=== PATIENT | female | born 1990 | race Caucasian/White ===

== ENCOUNTER 2024-06-15 00:47 | Day surgery (SDC) | payer OTHER, SELFPAY ==
--- NOTE | 2024-06-06 09:52 | PC.NURSE ---
Report to the Outpatient Waiting Room, entrance under the green pavilion located off [facility], at time _0600_ on date _[phone]_. Planned Procedure Time: _0730_.? Time changes happen often and if your time is changed the preop area will call you the afternoon before. - You and your visitor will be asked to self-screen and do not enter if you have any COVID symptoms. Please call surgeon if you need to reschedule. - A mask is optional within the hospital at this time. Patients may have clear liquids (water, carbonated beverages, clear teas, apple juice) until 3 hours prior to surgery with a maximum of 20 ounces. - No food from midnight until time of surgery and no smoking, or chewing tobacco (or any form of nicotine). No chewing gum, candy or mints. Take only the following medications with a SIP of water on the morning of surgery: __None___ DO NOT STOP ANY OF YOUR OTHER PRESCRIPTION MEDICATIONS PRIOR TO SURGERY EXCEPT THE FOLLOWING Hold all vitamins and supplements for 3 days per anesthesiologist. Medications to discontinue per physician Date to take last dose Please no make-up, nail dominican, hairspray, perfume, deodorant, or body powder the day of surgery.? No jewelry (including any body piercings) or valuables the day of surgery, leave them at home.? Please take a shower or bath the night before, or the morning of, surgery with an antibacterial soap.? Wear comfortable, loose fitting clothing. - Jewelry must be removed prior to entering the operating room.? Rings and piercings that are not removed may be cut off. - The hospital will not accept responsibility for valuables.? - Please leave all valuables, including medications, at home the day of surgery. If you are going home after surgery, a licensed dray driver must drive you home.? - NO public transportation without another adult if you receive anesthesia. - We recommend that an adult stay with you for 24 hours following discharge. - We also recommend that you do not drive, make important decision, drink alcoholic beverages, or take any drugs that were not prescribed by your health care provider for at least 24 hours after your discharge time. Follow any additional instructions given to you from your surgeon. Telephone instructions given to _Ana___and asked if any additional questions and then verbalized understanding. Patient advised to call surgeon office or pre surgery nurse liaison [phone] if any additional questions.
[2024-06-15] VITALS (8 sets, daily range): BP systolic 113–123; BP diastolic 62–78; PULSE 73–97; RESP 12–18; TEMP 36.4–36.7; O2SAT 98–100; BMI 20.9
--- OUTSIDE RECORDS SUMMARY | 2024-06-15 00:50 | XMS_ITS | Encounter Summary ---
Author Organization [facility] Address [address] [place] [address] Phone Care Team Providers Care Boat Tender Name Role Phone Perri Lang MD Primary Care Provider Carson jade Encounter Details Date Type Department Care Team (Late st Contact Info) Description 08/06/2021 Orders Only LAB [facility] [address] [place], [place] [address] Cara Lagos MD [address] [place], [place] [address] Flu-like symptoms; Encounter for screening for COVID-19 Social History Tobacco Use Types Packs/Day Years Used Date Smoking Tobacco: Never Smokeless Tobacco: Never Comments No Sex and Gender Information Value Date Recorded Sex Assigned at Not on file Legal Sex Female 12:06 PM CDT Gender Identity Not on file Sexual Orientation Not on file documented as of this encounter Plan of Treatment Not on file documented as of this encounter Procedures Procedure Name Priority Date/Time Associated Diagnosis Comments COVID-19 VIRUS PCR (2019 NOVEL CORONAVIRUS) Routine 08/06/2021 2:54 PM CDT Flu-like symptoms Encounter for screening for COVID-19 documented in this encounter Results * (ABNORMAL) COVID-19 VIRUS PCR (2019 NOVEL CORONAVIRUS) (08/06/2021 2:54 PM CDT) COVID-19 RESULT POSITIVE( A) [facility] Comment: Test Performed by Multiplex machine hose cutter-PCR. The [place] FDA has made this test available under an emergency access mechanism called an Emergency Use Authorization (EUA). The EUA is supported by the [place] of Health and Human Service's (HHS's) declaration that circumstances exist to justify the emergency use of in vitro diagnostics (IVDs) for the detection and/or diagnosis of the virus that causes COVID-19. An IVD made available under an EUA has not undergone the same type of review as an FDA-approved or cleared IVD. FDA may issue an EUA when certain criteria are met, which includes that there are no adequate, approved, available alternatives, and based on the totality of scientific evidence available, it is reasonable to believe that this IVD may be effective in the detection of the virus that causes COVID-19. The EUA for this test is in effect for the duration of the COVID-19 declaration justifying emergency use of IVDs, unless terminated or revoked (after which the test may no longer be used). COVID-19 SOURCE Nasal Swab [facility] No [facility] FIRST TEST NO [facility] EMPLOYED IN HEALTHCARE NO [facility] SYMPTOMATIC DEFINED BY CDC NO [facility] HOSPITALIZED NO [facility] ICU NO [facility] IS NO [facility] Comment:[facility], [address] [place] [id number] SWAB OF INTERNAL NOSE / Unknown 08/06/2021 2:54 PM CDT 08/06/2021 2:54 PM CDT Narrative [facility] - 08/06/2021 2:55 PM CDT CALL!RDOC us Cara Lagos MD HEM/CHEM/[id number] OD Final Result [facility] [address] [place] [id number], documented in this encounter Visit Diagnoses Diagnosis Flu-like symptoms Influenza with other respiratory manifestations Encounter for screening for COVID-19 documented in this encounter Additional Health Concerns Infection Onset Date Last Indicated Resolved Time COVID-19 08/06/2021 08/06/2021 08/27/2021 10:0 3 PM CDT documented as of this encounter Care Teams Boat Tender Relationship Specialty Start Date End Date Perri Lang MD PCP - General Family Medicine 10/26/22 documented as of this encounter
--- OUTSIDE RECORDS SUMMARY | 2024-06-15 00:50 | XMS_ITS | Clinical Summary ---
Author Organization [facility] Address [address] [place] [address] Phone Care Team Providers Care Data Analytics Architect Name Role Phone Perri Lang MD Primary Care Provider Unavaila ble Allergies Active Allergy Reactions Criticality Noted Date Comments Amoxicillin Hives High 08/06/2016 Cefaclor Other; see comment 08/06/2016 Unaware of reaction Penicillins Hives High 08/06/2016 Sulfa (Sulfonamide Antibiotics) Other; see comment 08/06/2016 Unaware of reaction Medications No known medications Active Problems No known active problems Immunizations Immunization Administration Dates Next Due Influenza (Flu Quad PF) 12/02/2017,12/13/2016 T-dap (ADACEL) 09/26/2015 T-dap (BOOSTRIX) 04/13/2018 Family History Medical History Relation Name Comments Hypertension Father Dementia Maternal Grandfather Heart Maternal Grandfather Heart Maternal Grandmother Anxiety Disorder Mother Hypertension Mother Ovarian Cancer Paternal Aunt late 60s Cancer Paternal Grandfather pancrea tic brain tumor Paternal Grandmother Breast Cancer Negative Cervical Cancer Negative Colon Cancer Negative Uterine Cancer Negative Relation Name Status Comments Brother Alive Daughter Alive Father Alive Maternal Grandfather Maternal Grandmother Mother Alive Paternal Aunt Alive Paternal Grandfather Paternal Grandmother Sister Alive Son 1 Alive Son 2 Alive Social History Tobacco Use Types Packs/Day Years Used Date Smoking Tobacco: Never Smokeless Tobacco: Never Tobacco Cessation:Counseling Given: Not Answered Alcohol Use Standard Drinks/Week Comments Not Currently 0 (1 standard drink = 0.6 oz pur e alcohol) Comments No Sex and Gender Information Value Date Recorded Sex Assigned at Not on file Legal Sex Female 12:06 PM CDT Gender Identity Not on file Sexual Orientation Not on file Last Filed Vital Signs Vital Sign Reading Time Taken Comments Blood Pressure 104/60 06/02/2023 3:49 PM CDT Pulse 81 06/02/2023 3:49 PM CDT Temperature 36.5 C (97.7 F) 06/02/2023 3:49 PM CDT Respiratory Rate 16 05/02/2023 11:14 AM CDT Oxygen Saturation 100% 06/02/2023 3:49 PM CDT Inhaled Oxygen Concentration - - Weight 46.9 kg (103 lb 6.3 oz) 06/02/2023 3:49 P M CDT Height 152.4 cm (5') 10/26/2022 1:53 PM CDT Body Mass Index 20.19 10/26/2022 1:53 PM CDT Plan of Treatment Health Maintenance Due Date Last Done Comments Pap Smear 09/09/2023 09/08/2020 COVID-19 Vaccine (4 - 2023-2 5 season) 2023 01/10/2021, 05/22/2020, 04/24/2020 Depression Screening 10/27/2023 10/26/2022, 03/21/2021 Influenza Vaccine (Season Ended) 2024 03/21/2021 (Declined), 12/02/2017, 12/13/2016 Cervical Cancer Screening 09/08/2025 HPV/Co-Testing 09/08/2025 09/08/2020 DTaP/Tdap/Td Vaccines (3 - T d or Tdap) 04/13/2028 04/13/2018, 09/26/2015 Hepatitis B Vaccines (1 of 3 - 19+ 3-dose series) 10/26/2049 Postponed from 05/2008 (Not Currently Indicated) MMR Vaccines (1 of 1 - Standard series) 10/26/2049 Postponed from 10/12 (Not Currently Indicated) Varicella Vaccines (1 of 2 - 13+ 2-dose series) 10/26/2049 Postponed from 10/12 (Not Currently Indicated) HIB Vaccines Aged Out No longer eligi ble based on patient's age to complete this topic HPV Vaccines Aged Out No longer eligi ble based on patient's age to complete this topic Hepatitis A Vaccines Aged Out No long er eligible based on patient's age to complete this topic IPV Vaccines Aged Out No longer eligi ble based on patient's age to complete this topic Meningococcal B Vaccine Aged Out No l onger eligible based on patient's age to complete this topic Meningococcal Vaccine (ACWY) Aged Out No longer eligible based on patient's age to complete this topic Pneumococcal Vaccines Aged Out No melany martin eligible based on patient's age to complete this topic Rotavirus Vaccines Aged Out No longer eligible based on patient's age to complete this topic Insurance [employer] Care Teams Data Analytics Architect Relationship Specialty Start Date End Date Perri Lang MD PCP - General Family Medicine 10/26/22
--- OUTSIDE RECORDS SUMMARY | 2024-06-15 00:50 | XMS_ITS | Clinical Summary ---
Author Organization [facility] Address [address] [place] [address] Phone Care Team Providers Care Community Service Aide Name Role Phone Negro Odom MD Primary Care Provider [phone] Allergies Active Allergy Reactions Criticality Noted Date Comments Amoxicillin Rash 09/23/2015 Penicillins Rash 09/23/2015 Sulfa Antibiotics Rash 09/23/2015 Medications Vit-Fe Fumarate-FA ( VITAMIN PO) Take by mouth. Active ibuprofen (MOTRIN) 800 MG Tablet Take 1 Tab by mouth every 8 hours. 50 Tab 05/18/2018 Active Family History Medical History Relation Name Comments Heart Attack Maternal Grandmother Relation Name Status Comments Maternal Grandmother Social History Tobacco Use Types Packs/Day Years Used Date Smoking Tobacco: Never Smokeless Tobacco: Never Alcohol Use Standard Drinks/Week Comments No 0 (1 standard drink = 0.6 oz pur e alcohol) PHQ-2 Answer Date Recorded PHQ-2 Score 0 2018 Douglas Depression Scale Answer Date Recorded RETIRED Douglas Depression Score 0 05/17/2018 Last EPDS Self Harm Result Not on file 05/17 Sexually Active Control Partners Comments Yes Male Comments No Sex and Gender Information Value Date Recorded Sex Assigned at Not on file Legal Sex Female 9:25 PM CDT Gender Identity Not on file Sexual Orientation Not on file Last Filed Vital Signs Vital Sign Reading Time Taken Comments Blood Pressure 113/76 05/18/2018 6:30 PM CDT Pulse 78 05/18/2018 6:30 PM CDT Temperature 36.6 C (97.9 F) 05/18/2018 6:30 PM CDT Respiratory Rate 16 05/18/2018 6:30 PM CDT Oxygen Saturation 97% 05/18/2018 6:30 PM CDT Inhaled Oxygen Concentration - - Weight 60.8 kg (134 lb) 05/17/2018 2:22 AM CDT Height 152.4 cm (5') 05/17/2018 2:22 AM CDT Body Mass Index 26.17 05/17/2018 2:22 AM CDT Plan of Treatment Not on file Insurance [facility] Advance Directives * Full Code (Latest Code Status on File) Date Activated Date Inactivated Comments 05/17/2018 2:13 AM 05/19/2018 11:20 PM CPR-Full Naman atment: FULL ARREST: Attempt Resuscitation/CPR wit intubation and mechanical ventilation. PRE-ARREST: Use entire range of life support measures to stabilize the patient. * Full Code Date Activated Date Inactivated Comments 09/23/2015 9:35 PM 09/24/2015 3:07 AM CPR-Full [place]aman atment: FULL ARREST: Attempt Resuscitation/CPR wit intubation and mechanical ventilation. PRE-ARREST: Use entire range of life support measures to stabilize the patient. Care Teams Community Service Aide Relationship Specialty Start Date End Date Negro Odom MD [address] [place] [address] [place] [address] PCP - General Family Medicine 09/23/15
--- OUTSIDE RECORDS SUMMARY | 2024-06-15 00:50 | XMS_ITS | Clinical Summary ---
Author Organization [facility] Address [address] [place] [id number] Care Team Providers Care Formwork Carpenter Name Role Phone Unavailable Primary Care Provider Unavailabl e Social History Tobacco Use Types Packs/Day Years Used Date Smoking Tobacco: Never Assessed Comments Unknown Sex and Gender Information Value Date Recorded Sex Assigned at Not on file Legal Sex Female 9:52 PM MICROSTRATEGY DEVELOPER Gender Identity Not on file Sexual Orientation Not on file Plan of Treatment Health Maintenance Due Date Last Done Comments Cervical Cancer Screening Pa p Smear (Age 30 to 64) Every 3 Years 1989 Annual Physical 1992 Hepatitis C 10/13/2007 DTaP, Tdap and Td Vaccines ( 1 - Tdap) 2008 Hepatitis B Vaccines (1 of 3 - 19+ 3-dose series) 2008 Cervical Cancer Screening Pa p with HPV Testing (Age 30 to 64) Every 5 Years 10/13/2019 Cervical Cancer Screening with HPV 10/13/2019 COVID-19 Vaccine (2023-2 5 season) 2023 HPV Vaccines Aged Out No longer eligi ble based on patient's age to complete this topic Meningococcal B Vaccine Aged Out No l onger eligible based on patient's age to complete this topic Meningococcal Vaccine Aged Out No melany martin eligible based on patient's age to complete this topic Pneumococcal Vaccine: Pediat rics (0 to 5 Years) and At-Risk Patients (6 to 49 Years) Aged Out No longer eligible b ased on patient's age to complete this topic RSV Immunizations Under 20 Months Aged Out No longer eligible based on patient's age to complete this topic
--- OUTSIDE RECORDS SUMMARY | 2024-06-15 00:50 | XMS_ITS | Data Portability ---
Author Organization [facility], [facility] Address [address] [place] [address] Assessment Encounter Date Assessment Date Assessment LastModified by Organization Details LastModified Time 09/03/2020 09/03/2020 Annual gynecological exam performed. Patient will come back in a year unless there are new symptoms. Not available 09/03/2020 11:41:20 09/08/2021 09/08/2021 Annual gynecological exam performed. Patient will come back in a year unless there are new symptoms. Not available 09/08/2021 11:33:25 09/10/2022 09/10/2022 Annual gynecological exam performed. Patient will come back in a year unless there are new symptoms. [email or web address] Not available 09/10/2022 11:31:28 09/14/2023 09/14/2023 Annual gynecological exam performed. Patient will come back in a year unless there are new symptoms. [email or web address] Not available 09/14/2023 11:58:34 Plan of Treatment Reminders Order Date Submit Date Provider Last Modified By Organization Details Last Modified Time Details Appointments ANNUAL 2024 09:30A M Dr. Underwood Not available Not available Not available Lab pap, IG + reflex HPV 2023 024 CODEY [facility], [address] [place], [address], 09/20/2023 12:35:42 pap, IG + reflex HPV 2020 021 CODEY [facility] (Centralized Electronic Ordering - All Locations), Patient Can Go To The Location Of Their Choice, [address] 09/05/2020 12:35:40 pap, IG + reflex HPV (16+18+ 45) 2018 019 CODEY [facility] (Centralized Electronic Ordering - All Locations), Patient Can Go To The Location Of Their Choice, [address] 06/30/2018 09:36:08 Referral None recorde d. Procedures None recorde d. Surgeries None recorde d. Imaging None recorde d. Medication Orders None recorde d. Patient TargetsNo targets recorded. Patient Instructions Encounter Date Encounter Id Patient Instructions Last Modified By Organization Details Last Modified Time 06/28/2018 [id number] edinburgh depression scale* [email or web address] Not available 06/28/2018 11:43:53 09/14/2023 [id number] RTO-09/2024 for Annual Examination. [email or web address] Not available 09/14/2023 13:16:13 Pap smear done today, Last Pap smear-09/03/2020 -WNL< HR HPV Negative. [email or web address] Not available 09/14/2023 13:16:52 Reason for Referral None Reported. Results Created Date Observation Date Name Description Value Unit Range Abnormal Flag Note LastModifiedBy Organization Detail LastModifiedTime 06/29/19 19 06/28/2018 edinb urgh postn atal depre ssion scale * Total Score 5 Not Available [address], [place], [address], 06/28/2018 10:21:31 06/29/19 19 06/29/2018 pap, IG + refle x HPV (16+1 8+45) age gdln acog testing Not Available [facility] ([facility]) [address] [facility] [address], [place], [address], 06/30/2018 09:36:08 06/29/19 19 06/30/2018 pap, IG + refle x HPV (16+1 8+45) diagnosis: Commen t NEGAT ILIR FOR INTRA EPITH ELIAL LESIO N OR WILLOW CARTER . Not Available [facility] ([facility]) [address] [facility] [address], [place], [address], 06/30/2018 09:36:08 06/29/19 19 06/30/2018 pap, IG + refle x HPV (16+1 8+45) specimen adequacy: Mari monge Satis facto ry for evalu ation . Endoc ervic al and/o r squam ous metap lasti c cells (endo cervi ca compo nent) are prese nt. Not Available [facility] ([facility]) [address] [place], [address], 06/30/2018 09:36:08 06/29/19 19 06/30/2018 pap, IG + refle x HPV (16+1 8+45) clinician provided ICD10: Mari monge Z12.4 Not Available [facility] ([facility]) [address] [place], [address], 06/30/2018 09:36:08 06/29/19 19 06/30/2018 pap, IG + refle x HPV (16+1 8+45) performed by: Mari Burrows ns, Cytot carolann fontenot t (ASCP ) Not Available [facility] ([facility]) [address] [place], [address], 06/30/2018 09:36:08 06/29/19 19 06/30/2018 pap, IG + refle x HPV (16+1 8+45) . . Not Available [facility] ([facility]) [address] [place], [address], 06/30/2018 09:36:08 06/29/19 19 06/30/2018 pap, IG + refle x HPV (16+1 8+45) note: Mari monge The Pap smear is a scree adan test desig arnulfo to aid in the detec tion of gayle ligna nt and malig nant condi tions of the uteri ne cervi x. It is not a diagn ostic proce dure and shoul d not be used as the sole means of detec ting cervi ca cance r. Both false -posi tive and false -nega tive repor ts do occur . Not Available [facility] ([facility]) [address] [facility], [place], [address], 06/30/2018 09:36:08 06/29/1906/30/2018 pap, IG + refle x HPV (16+1 8+45) test methodology: Commen t This liqui d based ThinP rep(R ) pap test was avel arredondo with the use of an image guide arthur white Not Available [facility] ([facility]) [address] [facility], [place], [address], 06/30/2018 09:36:08 06/29/1906/30/2018 pap, IG + refle x HPV (16+1 8+45) . Commen t The HPV DNA refle x crite ellis were not met with this speci men resul t there fore, no HPV testi ng was perfo rmed. Not Available [facility] ([facility]) [address] [facility], [place], [address], 06/30/2018 09:36:08 09/04/1909/04/2020 IGP,A PTIMA HPV,A GE GDLN age gdln acog testing 30-65 Not Available [facility] ([facility]) [address] [place], [address], 09/05/2020 12:35:40 09/04/1909/04/2020 IGP,A PTIMA HPV,A GE GDLN HPV aptima Negati ve negati ve This nucle ic acid ampli ficat ion test detec ts fourt een high- risk HPV types (16,1 8,31, 33,35 ,39,4 5,51, 52,56 ,58,5 9,66, 68) witho ut diffe renti ation . Not Available [facility] ([facility]) [address] [facility], [place], [address], 09/05/2020 12:35:40 09/04/1909/05/2020 IGP,A PTIMA HPV,A GE GDLN diagnosis: Mari GONSALESAT ILIR FOR INTRA EPITH ELIAL MART N OR WILLOW CARTER . Not Available [facility] ([facility]) [address] [place], [address], 09/05/2020 12:35:40 09/04/1909/05/2020 IGP,A PTIMA HPV,A GE GDLN specimen adequacy: Mari monge Satis facto ry for evalu ation . Endoc ervic al and/o r squam ous metap lasti c cells (endo cervi ca compo nent) are prese nt. Not Available [facility] ([facility]) [address] [place], [address], 09/05/2020 12:35:40 09/04/1909/05/2020 IGP,A PTIMA HPV,A GE GDLN clinician provided ICD10: Mari monge Z12.4 Not Available [facility] ([facility]) [address] [place], [address], 09/05/2020 12:35:40 09/04/1909/05/2020 IGP,A PTIMA HPV,A GE GDLN performed by: Mari Dumont , Cytot carolann fontenot t (ASCP ) Not Available [facility] ([facility]) [address] [place], [address], 09/05/2020 12:35:40 09/04/1909/05/2020 IGP,A PTIMA HPV,A GE GDLN . . Not Available [facility] ([facility]) [address] [place], [address], 09/05/2020 12:35:40 09/04/1909/05/2020 IGP,A PTIMA HPV,A GE GDLN note: Mari monge The Pap smear is a scree adan test yao arredondo to aid in the detec tion of gayle ligna nt and malig nant condi tions of the uteri ne cervi x. It is not a diagn ostic proce dure and shoul d not be used as the sole means of detec ting cervi ca cance r. Both false -posi tive and false -nega tive repor ts do occur . Not Available [facility] ([facility]) [address] [place], [address], 09/05/2020 12:35:40 09/04/19 21 09/05/2020 IGP,A PTIMA HPV,A GE GDLN test methodology: Commen t This liqui d based ThinP rep(R ) pap test was avel arredondo with the use of an image guide arthur white Not Available [facility] ([facility]) [address] [facility], [place], [address], 09/05/2020 12:35:40 09/14/19 24 09/14/2023 IGP,A PTIMA HPV,A GE GDLN age gdln acog testing 30-65 Not Available [facility] ([facility]) [address] [place], [address], 09/20/2023 12:35:42 09/14/19 24 09/15/2023 IGP,A PTIMA HPV,A GE GDLN HPV aptima Negati ve negati ve This nucle ic acid ampli ficat ion test detec ts fourt een high- risk HPV types (16,1 8,31, 33,35 ,39,4 5,51, 52,56 ,58,5 9,66, 68) witho ut diffe renti ation . Not Available [facility] ([facility]) [address] [place], [address], 09/20/2023 12:35:42 09/14/19 24 09/20/2023 IGP,A PTIMA HPV,A GE GDLN diagnosis: Commen t NEGAT ILIR FOR INTRA EPITH ELIAL LESIO N OR MALIG RAUL . THIS SPECI MEN WAS RESCR EENED PART OF OUR QUALI TY CONTR OL PROGR AM. Not Available [facility] ([facility]) [address] [facility], [place], [address], 09/20/2023 12:35:42 09/14/19 24 09/20/2023 IGP,A PTIMA HPV,A GE GDLN specimen adequacy: Mari monge Satis facto ry for evalu ation . Endoc ervic al and/o r squam ous metap lasti c cells (endo cervi ca compo nent) are prese nt. Not Available [facility] ([facility]) [address] [facility], [place], [address], 09/20/2023 12:35:42 09/14/19 24 09/20/2023 IGP,A PTIMA HPV,A GE GDLN clinician provided ICD10: Mari monge Z01.4 19 Not Available [facility] ([facility]) [address] [facility], [place], [address], 09/20/2023 12:35:42 09/14/19 24 09/20/2023 IGP,A PTIMA HPV,A GE GDLN performed by: Mari milian, Cytot echno logis t (ASCP ) Not Available [facility] ([facility]) [address] [place], [address], 09/20/2023 12:35:42 09/14/19 24 09/20/2023 IGP,A PTIMA HPV,A GE GDLN QC reviewed by: Mari rivera, Cytot echno logis t (ASCP ) Not Available [facility] ([facility]) [address] [place], [address], 09/20/2023 12:35:42 09/14/19 24 09/20/2023 IGP,A PTIMA HPV,A GE GDLN . . Not Available [facility] ([facility]) [address] [place], [address], 09/20/2023 12:35:42 09/14/19 24 09/20/2023 IGP,A PTIMA HPV,A GE GDLN note: Commen t The Pap smear is a scree adan test desig arnulfo to aid in the detec tion of gayle ligna nt and malig nant condi tions of the uteri ne cervi x. It is not a diagn ostic proce dure and shoul d not be used as the sole means of detec ting cervi ca cance r. Both false -posi tive and false -nega tive repor ts do occur . Not Available [facility] ([facility]) [address] [facility], [place], [address], 09/20/2023 12:35:42 09/14/19 24 09/20/2023 IGP,A PTIMA HPV,A GE GDLN test methodology: Traceeen t This liqui d based ThinP rep(R ) pap test was scree arnulfo with the use of an image guide d systfior m. Not Available [facility] ([facility]) [address] [facility], [place], [address], 09/20/2023 12:35:42 09/14/19 24 09/20/2023 IGP,A PTIMA HPV,A GE GDLN HPV genotype reflex Commen t Crite ellis not met, HPV Genot ype not perfo rmed. Not Available [facility] ([facility]) [address] [facility], [place], [address], 09/20/2023 12:35:42 Result Notes None recorded. Problems Name Problem SNOMED Code Status Onset Date Resolution Date Notes Provider Name and Address Organization Details Recorded Time No current problems or disability [id number] Active Ambar Fu [place], [place] - [place] [facility] 2 11:34:01 [id number] Completed 201706/28/2018 Anette Guerra, JAYNE [address], [place], [address], [facility] [place] 9 10:56:39 Problem Notes None recorded. Procedures Surgical History Date Name Laterality Status Provider Name and Address Organization Details Recorded Time 4 Date of Last Pap Smear completed Gypsy Rey [facility] [place] 09/23/2023 14:38:16 6 Caesarean Section completed Carmelo Anderson [facility] [place] 10/25/2017 16:07:39 Imaging Results None recorded. Procedure Notes None recorded. Medical Equipment None Reported. Allergies Allergen ID Allergen Name Allergen Category Reaction Reaction Severity Criticality Documentation Date Start Date Code Code System Note Provider Name and Address Organization Details Recorded Time 921 Substance with sulfonami de structure and antibacte rial mechanism of action (substanc e) medicatio n Not available Not available Not available 10/25/2017 37227 8003 SNOMED Carmelo Anderson [facility] [place] 8 09:30:46 922 Product containin g penicilli n (product) medicatio n Not available Not available Not available 10/25/2017 14534 8001 SNOMED Carmelo Anderson [facility] [place] 8 09:31:00 923 amoxicill in medicatio n Not available Not available Not available 10/25/2017 723 [facility] [place] 8 09:31:09 Medications Name Sig Start Date Stop Date Status Note LastModified by Organization Details LastModified Time doxycycline hyclate 100 mg capsule TAKE 1 CAPSULE BY MOUTH TWICE A DAY 09/08 completed Not Available Not Available Not Available ibuprofen 800 mg tablet 09/03 completed Not Available Not Available Not Available hydrocortis one acetate 25 mg rectal suppository Insert 1 supposito ry twice a day by rectal route for 7 days. 09/03 completed Not Available Not Available Not Available Macrobid 100 mg capsule Take 1 capsule every 12 hours by oral route for 5 days. 09/03 completed Not Available Not Available Not Available Diclegis 10 mg-10 mg tablet,nicky yed release Take 2 tablets twice a day by oral route for 30 days. 09/03 completed Not Available Not Available Not Available Vitals Date Recorded Body height Body mass index (BMI) Body weight Systolic blood pressure Diastolic blood pressure Provider Name and Address Organization Details Last Updated DateTime 09/03/2020 152.4 cm 21.3 kg/m2 23512.57 g 110 mm[Hg] 62 mm[Hg] [facility] [place] 1 11:48:29 Date Recorded Body height Body mass index (BMI) Body weight Systolic blood pressure Diastolic blood pressure Provider Name and Address Organization Details Last Updated DateTime 09/08/2021 152.4 cm 21.3 kg/m2 73475.57 g 102 mm[Hg] 60 mm[Hg] [facility] [place] 2 11:39:26 Date Recorded Body height Body mass index (BMI) Body weight Systolic blood pressure Diastolic blood pressure Provider Name and Address Organization Details Last Updated DateTime 09/10/2022 152.4 cm 20.7 kg/m2 90511.79 g 121 mm[Hg] 80 mm[Hg] [facility] 3 11:44:26 Date Recorded Body height Body mass index (BMI) Body weight Systolic blood pressure Diastolic blood pressure Provider Name and Address Organization Details Last Updated DateTime 09/14/2023 152.4 cm 20.3 kg/m2 84288.61 g 106 mm[Hg] 70 mm[Hg] Gypsy Rey [facility] 4 12:05:39 Date Recorded Body height Body mass index (BMI) Body weight Systolic blood pressure Diastolic blood pressure Provider Name and Address Organization Details Last Updated DateTime 06/28/2018 152.4 cm 22.5 kg/m2 39872.12 255 g 100 mm[Hg] 68 mm[Hg] Justyn Carranza [facility] 9 10:18:01 Social History Question Answer Notes LastModified by Organizat ion Details LastModified Time Tobacco Smoking Status Never Smoker [facility] 09/03/2020 11:43:54 What Was The Date Of Your Most Recent Tobacco Screening? 09/14/2023 [email or web address] Information not available 09/14/2023 What Is Your Relationship Status? [facility] Information not available 09/14/2023 Do You Use Any Illicit Or Recreational Drugs? No [email or web address] Information not available 09/03/2020 Do You Or Have You Ever Used Any Other Forms Of Tobacco Or Nicotine? No [email or web address] Information not available 09/03/2020 Sex: Female Functional Status None recorded. Mental Status None recorded. Family History Relationship Description Onset Age of this Age Resolved Age Notes LastModified by Organization Details LastModified Time Father Hypertensive disorder [email or web address] Not available 2022 11:45:00 Mother Disorder of thyroid gland [email or web address] Not available 2022 11:45:05 Maternal Grandmother Heart disease [email or web address] Not available 2022 11:45:11 Paternal Grandmother Neoplasm of brain [email or web address] Not available 2022 11:45:26 Paternal Grandfather Malignant tumor of pancreas [email or web address] Not available 2022 11:45:47 Medical History Condition Response Allergies (Food, seasonal, environmental ) N Other N Drug/Latex Allergies/Reactions N Breast Cancer N Blood Transfusion N Dermatologic Disorders N Lung Disease N Defects or Inherited Disease N Breast Problem N Gestational Diabetes N Hematologic disorders N Anesthesia Complications N History of STI N Deep Vein Thrombosis N Polycystic ovary syndrome N Anxiety Disorder N Autoimmune disease N Arthritis N Polyps N Infertility N Acid Reflux (GERD) N History of abnormal pap N Cancer N Varicosities N Stroke N Neurologic/Epilepsy N Endometriosis N High Cholesterol N Fibromyalgia N Headaches N Kidney Disease N Heart Problems N Thyroid Problems N Kidney or Bladder Problems N GI Problems N Acne N Eating Disorder N Anemia N Art (IVF or FET) N Psychiatric Illness N Ovarian Cancer N Diabetes N Pulmonary (TB, Asthma) N Hepatitis/Liver Disease N Eczema N Abuse/Domestic Violence N Asthma N Trauma/Violence N Depression/ depression N Heart Disease N Pre-Eclampsia N Hypertension N Osteoporosis N Thrombophilias N Gynecological History Statement/Question Response Abnormal Pap N Flow Moderate On BCP's at Conception? N STIs/STDs N HPV Vaccine N Duration of Flow (days) 5 Age at Menarche 14 Current Control Method Partner Vas ectomy Age at First Child 25 Frequency of Cycle (Q days) 27 Sexually Active? Y Menses Monthly Y Date of Last Pap Smear 09/14/2023 Sexual Problems? N Desired Control Method N/A LMP Definite Obstetrics History GPAL:G 2 P 1 1 0 3 Type Value Multiple Births 1 Full Term 1 Premature 1 Living 3 Total 2 Past Encounters Encounter ID Performer Location Encounter Start Date Encounter Closed Date Diagnosis/Indication Diagnosis SNOMED-CT Code Diagnosis ICD10 Code Diagnosis Note [id number] Naya Underwood MD Main Office [address] [place] [address] 10/25/2017 15:44:20 10/26/2017 09:41:48 Gestation period, 8 weeks 36793768 Z3A.08 Multigravida 634591613 Z 34.81 [id number] Anette Guerra CNM Main Office [address] [place] [address] 6 11/23/2017 09:54:12 11/24/2017 10:21:08 Multigravida 066795588 O09.629 Gestation period, 12 weeks 23285942 Z3A.12 [id number] Anette Guerra CNM Main Office [address] [place] [address] 6 12/21/2017 10:05:00 12/27/2017 10:41:09 Multigravida 157618787 O09.629 Gestation period, 16 weeks 36071664 Z3A.16 [id number] Anette Guerra CNM Main Office [address] [place] [address] 01/18/2018 09:50:57 01/18/2018 11:08:38 Multigravida 509457020 O09.629 Gestation period, 20 weeks 61331242 Z3A.20 [id number] Naya Underwood MD Main Office [address] [place] [address] 02/17/2018 10:20:26 02/22/2018 11:58:41 Gestation period, 24 weeks 905896324 Z3A.24 Multigravida 769115999 Z 34.82 [id number] Anette Guerra CNM Main Office [address] [place] [address] 03/17/2018 10:04:11 03/18/2018 10:02:47 Multigravida 029565297 O09.629 Gestation period, 28 weeks 83555657 Z3A.28 [id number] Naya Underwood MD Main Office [address] [place] [address] 03/31/2018 11:20:51 03/31/2018 14:56:18 Multigravida 782577351 Z34.82 Gestation period, 30 weeks 74700109 Z3A.30 [id number] Anette Guerra CNM Main Office [address] [place] [address] 04/12/2018 12:03:51 04/12/2018 12:28:05 Multigravida 182997795 O09.629 Gestation period, 32 weeks 9700926 Z3A.32 [id number] Naya Underwood MD Main Office [address] [place] [address] 04/28/2018 11:14:55 04/28/2018 14:15:20 [id number] Anette Guerra CNM Main Office [address] [place] [address] 05/10/2018 10:13:36 05/10/2018 13:00:35 Multigravida 638126437 O09.629 Hemorrhoids 21912060 K64 .9 Gestation period, 36 weeks 95584012 Z3A.36 [id number] Anette Guerra CNM Main Office [address] [place] [address] 06/28/2018 10:10:34 06/28/2018 14:43:14 state 92368741 Z39.2 Screening for malignant neoplasm of cervix 559090743 Z12.4 [id number] Anette Guerra CNM Main Office [address] [place] [address] 09/03/2020 11:33:07 09/04/2020 12:41:42 Screening for malignant neoplasm of cervix 022008457 Z12.4 Gynecologi c examination 84408669 Z01.419 [id number] Anette Guerra CNM Main Office [address] [place] [address] 09/08/2021 11:32:53 09/08/2021 15:07:54 Gynecologic examination 32545567 Z01.419 Pap guidelines discussed, pap not collected. [id number] Anette Guerra CNM Main Office [address] [place] [address] 09/10/2022 11:08:54 09/10/2022 12:15:41 Gynecologic examination 21813677 Z01.419 Pap guidelines discussed, pap not collected. Tenderness of breast 552 87426 N64.4 Discussed normal cyclical breast changes and [place]. [id number] Naya Underwood MD Main Office [address] [place] [address] 09/14/2023 11:53:09 09/14/2023 14:05:57 Gynecologic examination 43576703 Z01.419 Health Concerns Section Related Observation LastModified by Organization Detai ls LastModified Time None Recorded Concern Status LastModified by Organization Details LastModified Time None Recorded Advance Directives Directive None Recorded Payers Encounter Date Sequence Insurance Name Policy Number Policy Daigle Covered Member ID Daigle Member ID Guarantor Name 06/28/2018 1 [employer] ([employer]) [id number] Luis Felipe Mancilla [id number] Ana Mancilla 06/28/2018 1 [place] [id number] Luis Felipe Mancilla [id number] Ana Mancilla 09/03/2020 1 [employer] [id number] Ana Mancilla [id number] Ana Mancilla 09/08/2021 1 [employer] [id number] Ana Mancilla [id number] Ana Mancilla 09/10/2022 1 [employer] [id number] Ana Mancilla [id number] Ana Mancilla 09/14/2023 1 [employer] [id number] Ana Mancilla [id number] Ana Mancilla Notes Date Note Type Note Provider Name and Address Organization Details Recorded Time 06/28/2018 text/html VisitReported bypatient.Associate d Symptoms:no abnormal bleeding; no vaginal discharge; no pelvic pain; laceration well healed; no constipation; no fecal incontinence; no dysuria; no urinary incontinence; no fever; no problems; no mastitis; normal mood 27 year old white female is here for post examination s/p 05/17/18. Doing well, no complaints. . Declines contraception at this time, reports is planning for vasectomy and will use condoms until then. Volant score: [address], [place], [address], [facility] [place] 06/28/2018 12:45:26 09/03/2020 text/html Annual GYNReport ed bypatient.Menstrual cycle:Normal menses Urinary symptoms:No hematuria; No incontinence Vulva:No genital lesion Vagina:Normal vaginal discharge Breast:No breast pain; No breast lump; No nipple discharge Sexual complaints:No sexual complaints; No pain during intercourse; Normal libido Menopausal Symptoms:No menopausal symptoms; Normal vaginal lubrication Psychological symptoms:No depression; No anxiety; No PMDD Preventive measures:Encourage self breast examination 29 year old white female is here for annual examination. Vasectomy for contraception. Last pap 06/28/18 WNL. No changes to medical/surgical history since last examination. Denies complaints today. [address], [place], [address], [facility] 09/04/2020 11:55:26 09/08/2021 text/html Annual GYNReport ed bypatient.Menstrual cycle:Normal menses Urinary symptoms:No hematuria; No incontinence Vulva:No genital lesion Vagina:Normal vaginal discharge Breast:No breast pain; No breast lump; No nipple discharge Sexual complaints:No sexual complaints; No pain during intercourse; Normal libido Menopausal Symptoms:No menopausal symptoms; Normal vaginal lubrication Psychological symptoms:No depression; No anxiety; No PMDD Preventive measures:Encourage self breast examination 30 year old white female is here for annual examination. LMP 08/30/21. Vasectomy for contraception. Last pap 09/03/20 WNL, HPV HR negative. Denies changes to medical/surgical history since last examination. Denies complaints today. Anette Guerra, JAYNE [address], [place], [address], [facility] 09/08/2021 12:22:13 09/10/2022 text/html Annual GYNReport ed bypatient.Menstrual cycle:Normal menses Urinary symptoms:No hematuria; No incontinence Vulva:No genital lesion Vagina:Normal vaginal discharge Breast:No breast pain; No breast lump; No nipple discharge Current Contraception:Partn er had vasectomy Sexual complaints:No sexual complaints; No pain during intercourse; Normal libido Menopausal Symptoms:No menopausal symptoms; Normal vaginal lubrication Psychological symptoms:No depression; No anxiety; No PMDD Preventive measures:Encourage self breast examination 31 year old white female is here for annual examination. LMP 08/28/22. Vasectomy for contraception. Last pap 09/03/20 WNL, HPV HR negative. Denies changes to medical/surgical history since last examination. Fort the past 3 months, patient notes right breast discomfort several days preceding her period. Resolves completely therafter. Does not palpate a mass. Negtive family history. Anette Guerra CNM [address], [place], [address], [facility] 09/10/2022 12:09:54 09/14/2023 text/html 32 Y/o WF 03 ( 1-PT-LTCS for Twins, 1-FT- ), LMP-08/23/2023, is here for Annual examination. Vasectomy for contraception. Last pap 09/03/20 WNL, HPV HR Negative. Denies changes to medical/surgical history since last examination. No other complaints. Naya Underwood MD [address], [place], [address], [facility] 09/14/2023 13:17:08 OBGyn Episode Ob Episode Information Episode Created Date Number of Fetuses Patient Bloodtype Patient rh Status Prepregnancy Weight lbs Domestic Partner Domestic Partner Phone Father Name Developmental Therapist Status 10/26/19 18 1 O Positive Luis Felipe Mancilla [facility] CLOSED Fetus Data First Name Last Name Admitted to NICU Weight (g) Sex Living Outcome Pediatric Complications Fetus ID Race Codes Race Delivery Type Cornejo pieter Gonzales y false 3061.74 6 M Full Term 1894 declin ed Patie nt Decli arnulfo Mina Calculation Initial Mina Date Initial Exam Date Initial Exam Provider Initial Ultrasound Date Last Menstrual Period Date Ultra Sound Weeks Gestation 06/04/2018 10/25/2017 10/25/2017 08/27/2017 8 Eighteen To Twenty Week Mina Update Ultra Sound Date Fundal Height At Umbil Quickening Date Ultra Sound Latest Weeks Gestation Final Mina Confirmed By Final Mina Confirmed Date Final Mina Date Ultra Sound Latest Days Gestation 0 vmorisetty 10/25/2017 019 0 Pre-hui Flowsheet Flowsheet Date 10/25/2017 Gauthier Score Blood Edema Fundus Height Fundus Units Glucose Ketones Leukocytes Nitrite Labor Signs Protein Cervic Dilation Cervic Effacement Cervic Station none neg Type Weight in lbs Pre/Post Dialysis Refused 100.289377129488 BP Diastolic BP Location Tested BP Systolic BP Type 70 R arm 116 sitting Fetus Heart Rate Present A 160's Present Fetus Movement Comments Pt. is here for an initial p renatal visit. Pt. c/o nausea and vomiting. Pt. will have NOB labs done at next visit. Flowsheet Date 11/23/2017 Gauthier Score Blood Edema Fundus Height Fundus Units Glucose Ketones Leukocytes Nitrite Labor Signs Protein Cervic Dilation Cervic Effacement Cervic Station none none Type Weight in lbs Pre/Post Dialysis Refused 107.391217423096 BP Diastolic BP Location Tested BP Systolic BP Type 64 R arm 112 sitting Fetus Heart Rate Present A 155 Present Fetus Movement Comments No complaints, pt. states th at nausea is getting better. Pt. NOB labs, GC/Chlamydia, and urine cx done in office today. Flowsheet Date 12/21/2017 Gauthier Score Blood Edema Fundus Height Fundus Units Glucose Ketones Leukocytes Nitrite Labor Signs Protein Cervic Dilation Cervic Effacement Cervic Station none none none neg Type Weight in lbs Pre/Post Dialysis Refused 111.163040311122 BP Diastolic BP Location Tested BP Systolic BP Type 70 R arm 108 sitting Fetus Heart Rate Present A Present Fetus Movement A No Comments No complaints. Pt. is O posi tive, Immune to Rubella, Hep B negative, HIV/RPR: non-reactive, Hb/Hct: 11.3/32.5, GC/Chlamydia: neg/ neg, Urine cx: mixed urogenital elver on 11/23/2017. Pt. declined cystic fibrosis. Quad screen drawn today. Flowsheet Date 01/18/2018 Gauthier Score Blood Edema Fundus Height Fundus Units Glucose Ketones Leukocytes Nitrite Labor Signs Protein Cervic Dilation Cervic Effacement Cervic Station none 20 cm none none neg Type Weight in lbs Pre/Post Dialysis Refused 114.150556106611 BP Diastolic BP Location Tested BP Systolic BP Type 72 R arm 110 sitting Fetus Heart Rate Present A 135 Present Fetus Movement A Yes Comments No complaints. Pt. starting to feel baby move. MFM U/S apt. scheduled for 01/25/2018 at 11:00 am at [facility]. Quad screen negative on 12/21/2017. TOLAC vs repeat discussed. Flowsheet Date 02/17/2018 Gauthier Score Blood Edema Fundus Height Fundus Units Glucose Ketones Leukocytes Nitrite Labor Signs Protein Cervic Dilation Cervic Effacement Cervic Station none 24 cm none none neg Type Weight in lbs Pre/Post Dialysis Refused Weight 117.573749192944 BP Diastolic BP Location Tested BP Systolic BP Type 58 R arm 100 sitting Fetus Heart Rate Present A 150's Present Fetus Movement A Yes Comments Good movement. Pt. c/o some occasional dmitriy hick's contractions. Pt. to have 1 hour glucola, HIV, RPR, and CBC at next visit. Flowsheet Date 03/17/2018 Gauthier Score Blood Edema Fundus Height Fundus Units Glucose Ketones Leukocytes Nitrite Labor Signs Protein Cervic Dilation Cervic Effacement Cervic Station none 27 cm none none neg Type Weight in lbs Pre/Post Dialysis Refused Weight 123.794177595568 BP Diastolic BP Location Tested BP Systolic BP Type 60 R arm 116 sitting Fetus Heart Rate Present A 140 Present Fetus Movement A Yes Comments Pt states good movemen t. FKCIG. Pt has no complaints at this time.Pt signed consent form today.Pt had 1 hour GTT, CBC, HIV, and RPR done today.01/25/2018-MFM U/S: 21w3d with posterior placentaTdap advised, form given. Flowsheet Date 03/31/2018 Gauthier Score Blood Edema Fundus Height Fundus Units Glucose Ketones Leukocytes Nitrite Labor Signs Protein Cervic Dilation Cervic Effacement Cervic Station none 30 cm none none neg Type Weight in lbs Pre/Post Dialysis Refused Weight 126.07300463070 BP Diastolic BP Location Tested BP Systolic BP Type 64 R arm 112 sitting Fetus Heart Rate Present A 150's Present Fetus Movement A Yes Comments Good movement. Pt. c/o occasional dmitriy hick's contractions. Flowsheet Date 04/12/2018 Gauthier Score Blood Edema Fundus Height Fundus Units Glucose Ketones Leukocytes Nitrite Labor Signs Protein Cervic Dilation Cervic Effacement Cervic Station none 31 cm none none neg Type Weight in lbs Pre/Post Dialysis Refused Weight 129.527962817839 BP Diastolic BP Location Tested BP Systolic BP Type 68 R arm 112 sitting Fetus Heart Rate Present A 140 Present Fetus Movement A Yes Comments Good movement. No comp laints. Flowsheet Date 04/28/2018 Gauthier Score Blood Edema Fundus Height Fundus Units Glucose Ketones Leukocytes Nitrite Labor Signs Protein Cervic Dilation Cervic Effacement Cervic Station none 34 cm none none neg Type Weight in lbs Pre/Post Dialysis Refused Weight 131.588326885843 BP Diastolic BP Location Tested BP Systolic BP Type 78 R arm 120 sitting Fetus Heart Rate Present A 140's Present Fetus Movement A Yes Comments Pt states good movemen t. FKCIG. Pt has no complaints at this time. GBS info given. Flowsheet Date 05/10/2018 Gauthier Score Blood Edema Fundus Height Fundus Units Glucose Ketones Leukocytes Nitrite Labor Signs Protein Cervic Dilation Cervic Effacement Cervic Station none 34 cm none none neg Type Weight in lbs Pre/Post Dialysis Refused Weight 134.992799630680 BP Diastolic BP Location Tested BP Systolic BP Type 76 R arm 108 sitting Fetus Heart Rate Present A 155 Present Fetus Movement A Yes Comments Good movement. Was see n in L&D on 05/06/18 with contractions. Occasional contractions since then. C/O rectal pain due to internal hemorrhoids, Rx for Anusol given. GBS culture done in office today. Flowsheet Date 06/28/2018 Gauthier Score Blood Edema Fundus Height Fundus Units Glucose Ketones Leukocytes Nitrite Labor Signs Protein Cervic Dilation Cervic Effacement Cervic Station Type Weight in lbs Pre/Post Dialysis Refused Weight 115.946569599368 BP Diastolic BP Location Tested BP Systolic BP Type 68 R arm 100 sitting Fetus Heart Rate Present Fetus Movement Comments Menstrual History Last Menstrual Date Menses Monthly On Bcp Conception Prior Menses Frequency Hcg Plus Date Menarche Onset Age 0708/27/2017 Genetic Screening And Infection History Question Response Note Patient's Age Will Be 35 Years Or Older At Estim ated Date of Delivery false Thalassemia (Yakut, Irish, Mediterranean, Or Background): MCV < 80 false Neural Tube Defect (Meningomyelocele, Spina Bifi da, Or Anencephaly) false Congenital Heart Defect true Down Syndrome false Daniel-Sachs (eg, Sabianism, Cajun, Bulgarian-Chenango) f alse Devang Disease false Sickle Cell Disease Or Trait () false Hemophilia Or Other Blood Disorders false Muscular Dystrophy false Cystic Fibrosis false [place] Chorea false Intellectual Disability/Autism false If Yes, Was Person Tested For Fragile X? false Other Inherited Genetic Or Chromosomal Disorder false Maternal Metabolic Disorder (eg, Type 1 Diabetes , PKU) false Patient Or Baby's Father Had A Child With Defects Not Listed Above false Recurrent Loss, Or A Stillbirth false Medications (including Suppl ements, Vitamins, Herbs, OTC Drugs), Illicit/Recreational Drugs, Alcohol false If Yes, Agent(s) And Strength/Dosage false Any Other Genetic History false Live With Someone With TB Or Exposed To TB false Patient Or Partner Has History Of Genital Herpes false Rash Or Viral Illness Since Last Menstrual Perio d false History Of STD, Gonorrhea, Chlamydia, HPV, Syphi lis false Other Infection History false Prior GBS-infected child false History of HIV false History of Hepatitis false Hemoglobinopathy Or Carrier false Other Structural Defect false Recent Travel History Outside of Country false Mental Retardation/Autism false Delivery Information Delivery Date Delivery Type Labor Anesthesia Weeks Gestation Incision Type Labor Labor Length Hrs Delivered By Post Complications Tubal Sterilization Discharge Date Comments 9 Sponta neous None 37.3 false [place] Morisetty None Discharge Information Feeding Method Contraceptive Method Maternal HG B and HCT Levels Ob Episode Information Episode Created Date Number of Fetuses Patient Bloodtype Patient rh Status Prepregnancy Weight lbs Domestic Partner Domestic Partner Phone Father Name Developmental Therapist Status 10/26/19 18 2 CLOSED Fetus Data First Name Last Name Admitted to NICU Weight (g) Sex Living Outcome Pediatric Complications Fetus ID Race Codes Race Delivery Type 1332.19 9704 F Prematur e 1894 PRIMARY LTCS 1700.97 M Prematur e 1895 PRIMARY LTCS Mina Calculation Initial Mina Date Initial Exam Date Initial Exam Provider Initial Ultrasound Date Last Menstrual Period Date Ultra Sound Weeks Gestation 0 Eighteen To Twenty Week Mina Update Ultra Sound Date Fundal Height At Umbil Quickening Date Ultra Sound Latest Weeks Gestation Final Mina Confirmed By Final Mina Confirmed Date Final Mina Date Ultra Sound Latest Days Gestation 0 0 Menstrual History Last Menstrual Date Menses Monthly On Bcp Conception Prior Menses Frequency Hcg Plus Date Menarche Onset Age Delivery Information Delivery Date Delivery Type Labor Anesthesia Weeks Gestation Incision Type Labor Labor Length Hrs Delivered By Post Complications Tubal Sterilization Discharge Date Comments 6 Regional-Ep idural 30.5 [facility] by Carol thrasher MD Discharge Information Feeding Method Contraceptive Method Maternal HG B and HCT Levels
[2024-06-15] MEDS: LACTATED RINGERS 1,000 ML 30 ML IV CONT ×2 (06:47→08:15)
[2024-06-15] MEDS: TRANEXAMIC ACID 1,000MG/ISO100 1,000 MG/100 ML BAG 200 MG IVPB (07:08)
--- NOTE | 2024-06-15 07:08 | WPDHPUPDATE1 ---
History and Physical Update Update Date/Time: 06/15/24 07:08 History and Physical has been reviewed, including an updated exam of the patient. There are NO changes in the patient's condition. Risks, benefits, and alternatives have been discussed and questions answered. Patient agrees to proceed with procedure.
--- NOTE | 2024-06-15 07:10 | P.PNAN_ITS ---
Anes - Initial Pre Proc Eval Procedure: Operation Date: 06/15/24 07:30 Proposed Procedures p Bilateral Breast Augmentation, - Haider Locke MD Date/Time: 06/15/24 07:10 Surgeon: Haider Locke MD Pre Op Diagnosis: micromastia, breast ptosis Patient Data Age: 33 Gender: F Height: 1.52 m Weight: 46.6 kg Allergies Allergy/AdvReac Type Severity Reaction Status Date / Time Penicillins Allergy Severe Hives Verified 06/06/24 09:45 Sulfa (Sulfonamide Allergy Severe Hives Verified 06/06/24 09:45 Antibiotics) Home Medications ?Medication ?Instructions ?Recorded ?Confirmed ?Type No Home Medications 06/06/24 06/06/24 History Patient hx anesthesia problems: none Family hx anesthesia problems: none Results Review: All pre-operative results and documents have been reviewed as part of the pre- operative evaluation. [facility] Social History Social History Smoking status: Never smoker Living arrangements: with family Spiritual care concerns: No Anes - Eval Final PreProcedure Day of Procedure 06/15/24 07:10 Patient weight: normal Lungs: normal air movement Airway: Mallampati scale class II Neurological: alert and oriented Last oral intake: >/= 8 hours ASA classification: I Emergent: no Anesthetic plan: proceed Anesthesia type and monitoring: general LMA and standard monitoring Results Review: All pre-operative results and documents have been reviewed as part of the pre- operative evaluation. Healthy. Informed Consent: The patient's anesthetic plan and its attendant risks and benefits were discussed with the patient/family/POA. Questions were solicited and answers provided to the satisfaction of the patient/family/POA.
--- NOTE | 2024-06-15 07:17 | W.PM.PROC2 ---
Procedure Note - Detailed Date of Procedure 06/15/24 Pre-op Diagnosis micromastia Post-op Diagnosis Same Procedure Performed Bilateral augmentation mammaplasty Surgeon Haider Locke MD Anesthesia General Findings Bilateral dual plane augmentation Carlyn Jung SoftTouch 275cc Right: REF# [id number] SN [id number] Left: REF# [id number] SN [id number] Description of Procedure She is here today for bilateral breast augmentation. Previously and again today the risks, benefits, alternatives were discussed in extensive detail. I wanted her to be very realistic about the risks involved as well as expectations. We discussed aftercare and what to monitor for. Made sure answered all of her questions to her satisfaction today and consent was obtained. Marked in the preoperative holding area with their verification. The patient was taken to the operating room placed supine on the operating table. Anesthesia was provided by anesthesiology. A surgical time-out was taken. We cleansed the skin and 1% lidocaine and 0.25% Marcaine with epinephrine was used anesthetize as a field block. She was prepped and draped in a standard sterile fashion. Tegaderm nipple [place] were placed. A 15 blade used to make an incision along the inframammary fold. Dissection was continued at 45 degree angle until the chest wall as identified. I incised the pectoralis major along its inferior border and completely released the inferior border leaving the medial border intact. I created a subpectoral pocket in the appropriate dimensions based on our preoperative planning for the implant. I then copiously irrigated with saline solution and verified a strict hemostasis. Next the use a triple antibiotic and Betadine containing solution to irrigate the pocket. I washed my gloves with the triple antibiotic and Betadine solution. We washed the implant immediately upon opening it with this solution and only opened it when we needed it. I used implant funnel and no-touch technique. The implant was introduced into the pocket using the funnel. Having verified positioning of the implant this was closed using 2-0 PDS followed by 3-0 Monocryl in a running subcuticular 4-0 Monocryl followed by tissue glue. Fluffs and surgical bra were placed. Patient was awoke and taken to PACU without difficulty. All instrument sponge counts were correct at the end of the case. Estimated Blood Loss 25 Drains No Packing No Pathology None sent Complications No immediate complications Condition Stable Disposition PACU
[2024-06-15] MEDS: ceFAZolin 2 GM/D5W 50 ML 2 GM/50 ML BAG IVPB (07:24)
[2024-06-15] MEDS: BUPivacaine HCL 0.25% PF 30 ML VIAL INFILTRATE (07:24)
[2024-06-15] MEDS: NACL 0.9% IRRIG POUR BOTTLE 900 ML, GENTAMICIN SULFATE INJ 160 MG, CLINDAMYCIN PHOS INJ... IRRIGATION (07:24)
[2024-06-15] MEDS: LIDO 1%/EPINEPHRINE 1:100,000 50 ML VIAL 30 ML INFILTRATE (07:24)
[2024-06-15 07:38] LABS: BEDSIDEPREGUCG Negative (Negative)
[2024-06-15] MEDS: fentaNYL CITRATE INJ (*CRX) 100 MCG/2 ML VIAL 25 MCG IV PUSH ×4 (08:30→08:58)
[2024-06-15] MEDS: oxyCODONE HCL (*CRX) 5 MG TAB IR PO (09:15)
== END 2024-06-15 10:10 | disposition home or self-care (01) ==
PROVIDERS: Visit Provider Surgery Plastic and Reconstructive Surgery
PROC: (CPT 19325; principal; 2024-06-15 07:30)
DX: Z41.1 Encounter for cosmetic surgery (principal); N64.82 Hypoplasia of breast
CPT/HCPCS: 19325; A9270; J0690; J1100; J1200; J1580; J2003; J2004; J2250; J2405; J2704; J3010; J7120